=== PATIENT | male | born 1990 | race Caucasian/White ===

== ENCOUNTER 2020-07-08 06:47 | Emergency (ER) | payer MEDICAID ==
[~2020-07-08] VITALS: Ht 182.9 cm; Wt 84.1 kg
[~2020-07-08 06:47] MED LIST: NO HOME MEDS
[2020-07-08 07:13] VITALS: BP 126/77
== END 2020-07-08 08:09 | disposition left against medical advice (07) ==
LOC: ER 06:47
DX: K08.89 Other specified disorders of teeth and supporting structures (principal); Z53.21 Procedure and treatment not carried out due to patient leaving prior to being seen by health care provider

== ENCOUNTER 2021-02-28 16:51 | Emergency (ER) | payer MEDICAID ==
[~2021-02-28] VITALS: Ht 180.3 cm; Wt 72.7 kg
--- NOTE | 2021-02-28 17:24 | NUR ---
pt in handcuffs, thrashing around in bed, officer at bedside, dr hyatt
[2021-02-28] MEDS ORDERED: LORazepam 2 mg/ml vial IM ONE (17:30)
[2021-02-28] MEDS ORDERED: diphenhydrAMINE 50 mg/ml inj IM ONE (17:30)
[2021-02-28] MEDS ORDERED: ziprasidone IM 20mg inj **IM only IM ONE (17:30)
[2021-02-28] MEDS ORDERED: normal saline 1000ML IV soln IVB ONE ×2 (18:15→23:40)
--- NOTE | 2021-02-28 19:40 | NUR ---
Pt sleeping, minimal rousing when adjusting blood pressure cuff. respirations even and unlabored
[2021-02-28 19:58] LABS: ALANINE AMINOTRANSFERASE 53 U/L (12-78); ALBUMIN 4.2 G/DL (3.4-5.0); ALBUMIN/GLOBULIN RATIO 1.1 (1.1-1.5); ALKALINE PHOSPHATASE 84 IU/L (46-116); ANION GAP 14 (8-16); ASPARTATE AMINO TRANSFERASE 34 U/L (10-37); BILIRUBIN,TOTAL 0.7 MG/DL (0.1-1.0); BLOOD UREA NITROGEN 24 MG/DL (7-18); BUN/CREATININE RATIO 19.4 (5.4-32.0); CALCIUM 9.2 MG/DL (8.5-10.1); CHLORIDE 106 MMOL/L (99-107); CREATININE 1.24 MG/DL (0.60-1.10); GLUCOSE 89 MG/DL (70-104); POTASSIUM 3.6 MMOL/L (3.5-5.1); SODIUM 146 MMOL/L (135-145); TOTAL CARBON DIOXIDE 25.6 MMOL/L (24-32); TOTAL PROTEIN 7.9 G/DL (6.4-8.2); eGFR 69 ML/MIN
[2021-02-28 20:02] LABS: BASOPHILS % (AUTO) 0.3 % (0-1); EOSINOPHILS % (AUTO) 0.3 % (0-6); HEMATOCRIT 37.3 % (42.0-52.0); HEMOGLOBIN 12.6 g/dl (14.0-17.9); LYMPHOCYTES # (AUTO) 1.2 X10'3 (1.1-4.8); LYMPHOCYTES % (AUTO) 9.7 % (21-51); MEAN CORPUSCULAR HEMOGLOBIN 30.3 PG (27.0-31.0); MEAN CORPUSCULAR HGB CONC 33.9 g/dL (33.0-36.5); MEAN CORPUSCULAR VOLUME 89.5 FL (78-98); MEAN PLATELET VOLUME 7.8 FL (7.4-10.4); MONOCYTES # (AUTO) 0.4 X10'3 (0-0.9); NEUTROPHILS # (AUTO) 10.4 X10'3 (1.8-7.7); NEUTROPHILS % (AUTO) 86.7 % (42-75); PLATELET COUNT 249 X10'3 (140-440); RED BLOOD COUNT 4.17 X10'6 (4.70-6.10)
[2021-02-28 20:06] LABS: CREATINE KINASE 261 U/L (39-308); ETHANOL < 0.010 GM/DL (0.0-0.010); MAGNESIUM 2.4 MG/DL (1.5-2.4)
[2021-02-28 22:52] VITALS: BP 148/101
--- NOTE | 2021-03-01 02:28 | NUR ---
Pt woke up asking for the bathroom and water. Pt A/O x 4, and groggy. Pt given 2 sandwiches and a sweatshirt.
== END 2021-03-01 02:30 | disposition home or self-care (01) ==
LOC: ER 16:51
DX: F15.959 Other stimulant use, unspecified with stimulant-induced psychotic disorder, unspecified (principal); F24 Shared psychotic disorder; M62.82 Rhabdomyolysis; J45.909 Unspecified asthma, uncomplicated; F12.90 Cannabis use, unspecified, uncomplicated; F11.90 Opioid use, unspecified, uncomplicated; Z56.0 Unemployment, unspecified
CPT/HCPCS: 36415; 80053; 80320; 82550; 83735; 83874; 85025; 96360; 96361; 96372; 99285; J1200; J2060; J3486; J7030

== ENCOUNTER 2021-03-20 21:36 | Emergency (ER) | payer MEDICAID ==
[~2021-03-20] VITALS: Ht 185.4 cm; Wt 81.8 kg
[2021-03-20 21:39] VITALS: BP 134/68
== END 2021-03-20 22:07 | disposition home or self-care (01) ==
LOC: ER 21:37
DX: I10 Essential (primary) hypertension (principal); J45.909 Unspecified asthma, uncomplicated; Z02.89 Encounter for other administrative examinations
CPT/HCPCS: 99283

== ENCOUNTER 2021-04-02 17:09 | Emergency (ER) | payer MEDICAID ==
[~2021-04-02] VITALS: Ht 182.9 cm; Wt 86.4 kg
[2021-04-02] MEDS ORDERED: acetaminophen 325mg tablet PO ONE (19:15)
[2021-04-02 19:22] VITALS: BP 111/74
== END 2021-04-02 19:24 | disposition home or self-care (01) ==
LOC: ER 17:09
DX: T67.9XXA Effect of heat and light, unspecified, initial encounter (principal); F19.10 Other psychoactive substance abuse, uncomplicated; F15.10 Other stimulant abuse, uncomplicated; F12.10 Cannabis abuse, uncomplicated; F14.10 Cocaine abuse, uncomplicated; Z56.0 Unemployment, unspecified; Y92.89 Other specified places as the place of occurrence of the external cause
CPT/HCPCS: 82948; 99284

== ENCOUNTER 2021-05-03 10:59 | Emergency (ER) | payer MEDICAID ==
[~2021-05-03] VITALS: Ht 185.4 cm; Wt 86.4 kg
[2021-05-03] MEDS ORDERED: LORazepam 2 mg/ml vial IM ONE (11:10)
[2021-05-03 11:20] VITALS: BP 131/82
== END 2021-05-03 11:46 ==
LOC: ER 11:00
DX: Z00.8 Encounter for other general examination (principal); F15.129 Other stimulant abuse with intoxication, unspecified; R45.1 Restlessness and agitation; J45.909 Unspecified asthma, uncomplicated; F12.90 Cannabis use, unspecified, uncomplicated; F15.90 Other stimulant use, unspecified, uncomplicated; F11.90 Opioid use, unspecified, uncomplicated; F19.90 Other psychoactive substance use, unspecified, uncomplicated; Z56.0 Unemployment, unspecified
CPT/HCPCS: 96372; 99283; J2060

== ENCOUNTER 2021-05-25 02:31 | Emergency (ER) | payer MEDICAID ==
[~2021-05-25] VITALS: Ht 185.4 cm; Wt 83.0 kg
[2021-05-25 02:41] VITALS: BP 115/75
[2021-05-25] MEDS ORDERED: CEPH250T PO (03:19)
[2021-05-25] MEDS ORDERED: cephalexin 500mg capsule PO ONE (03:20)
== END 2021-05-25 03:34 ==
LOC: ER 02:32
DX: Z00.8 Encounter for other general examination (principal); L03.115 Cellulitis of right lower limb; J45.909 Unspecified asthma, uncomplicated; F12.90 Cannabis use, unspecified, uncomplicated; F15.90 Other stimulant use, unspecified, uncomplicated; F11.90 Opioid use, unspecified, uncomplicated; F19.90 Other psychoactive substance use, unspecified, uncomplicated; Z56.0 Unemployment, unspecified; Z79.2 Long term (current) use of antibiotics
CPT/HCPCS: 99283

== ENCOUNTER 2022-12-29 07:52 | Emergency (ER) | payer MEDICAID ==
[~2022-12-29] VITALS: Ht 182.9 cm; Wt 102.4 kg
[2022-12-29 10:41] VITALS: BP 142/70
[2022-12-29] MEDS: ibuprofen tablet 400 MG TABLET PO ONE (13:20)
== END 2022-12-29 14:00 | disposition home or self-care (01) ==
LOC: ER 07:52
DX: G43.909 Migraine, unspecified, not intractable, without status migrainosus (principal); J45.909 Unspecified asthma, uncomplicated; F12.10 Cannabis abuse, uncomplicated; F15.10 Other stimulant abuse, uncomplicated; Z59.00 Homelessness unspecified; F11.10 Opioid abuse, uncomplicated
CPT/HCPCS: 99282